=== PATIENT | male | born 1955 | race African-American/Black ===

== ENCOUNTER 2025-01-24 17:55 | Emergency (ER) | payer OTHER, SELFPAY ==
[2025-01-24 18:38] LABS: % Basophils 0.2 % (0-2); % Eosinophils 0.9 % (0-6); % Immature Granulocytes 0.2 % (0-0.5); % Lymphocytes 24.1 % (20.5-51.1); % Monocytes 12.8 % (1.7-9.3); % Neutrophils 61.8 % (42.2-75.2); Absolute Lymphocytes 1.1 10^3/uL (1.2-3.4); Absolute Monocytes 0.6 10^3/uL (0.1-0.6); Absolute Neutrophils 2.7 10^3/uL (1.4-6.5); Hematocrit 27.3 % (39.0-52.0); Hemoglobin 9.3 g/dL (13.0-18.0); Mean Corp Hgb Conc. 34.1 g/dL (33.0-37.0); Mean Corpuscular Hgb 34.2 pg (27.0-31.0); Mean Corpuscular Volume 100.4 fL (80.0-94.0); Mean Platelet Volume 8.8 fL (7.4-10.4); Nucleated Red Blood Cells % 0 % (-); Platelet Count 258 10^3/uL (130-400); Red Blood Cell Count 2.72 10^6/uL (4.70-6.10); Red Cell Dist. Width 14.9 % (11.5-14.5); White Blood Cell Count 4.4 10^3/uL (4.8-10.8)
[2025-01-24 18:47] LABS: INR 0.92; PT 12.9 Sec (11.4-14.6)
[2025-01-24 18:48] LABS: APTT 28.4 Sec (23.4-35.0)
[2025-01-24 18:58] LABS: ALT (SGPT) 29 U/L (0-50); AST (SGOT) 27 U/L (17-59); Alkaline Phosphatase 78 U/L (38-126); Blood Urea Nitrogen 14 mg/dl (9-20); Calcium 8.9 mg/dl (8.4-10.2); Carbon Dioxide 26 mmol/L (22-30); Chloride 108 mmol/L (98-107); Estimated Creatinine Clearance 91 ml/min; Glucose 99 mg/dl (70-99); Potassium 4.2 mmol/L (3.5-5.1); Sodium 139 mmol/L (135-145); Total Bilirubin 0.5 mg/dl (0.2-1.3); Total Protein 6.4 g/dl (6.3-8.2); eGFR > 60.00
--- NOTE | 2025-01-24 19:10 | ED.GENMED ---
History of Present Illness
General
Chief Complaint: Abnormal Lab Value
Source: patient
Time Seen by Provider: 01/24/25 18:26
History of Present Illness
History of Present Illness:
This patient is a 69-year-old male presents emergency department because he states he was told he had abnormal labs and needed to come to the ER. He says that about 10 days ago he awoke with 1/2-hour episode of nausea, vomiting, and passing black
stool. This was not associated with abdominal pain. Symptoms have fully resolved and he has not had any further episodes of black stool, bright red blood per rectum, or bleeding otherwise. About 3 days ago he developed episodes where he has
episodes where the light seem really bright and he seen blue and red in his visual field. He sometimes feels like it is hard to focus his vision as well. He saw an game operator and was told that his eye exam is normal. He spoke to his primary
care doctor, was referred for labs, and then was referred here. Patient states 'I feel fine'. He denies numbness, tingling, diplopia, focal weakness, vomiting, headache, imbalance/dizziness, abdominal pain, back pain, neck pain, or other
complaints.
Past History
Past History
ED Past Medical History: HTN, Hypercholesterolemia and Other ('eye migraines')
ED Past Surgical History: Orthopedic
Social History
Tobacco: Non-smoker
Alcohol: None
Drug: None
Living: alone
Phy Exam
Physical Exam
Physical Exam:
GENERAL: Alert , in no apparent distress
EYE: pupils equal and reactive to light, EOMI, no nystagmus, no objective photophobia, conjunctive a pink
NECK: Supple, no significant adenopathy.
ENT: o/p clr, mmm.
CARDIAC: Regular rate and rhythm .
LUNGS: Clear breath sounds bilaterally, no acute respiratory distress, no wheezes/rales/rhonchi
ABDOMEN: Soft, without focal tenderness, no r/g, no cvat
NEUROLOGICAL: Alert and oriented, no focal neuro deficits
SKIN: Warm and dry, skin intact.
MUSCULOSKELETAL: No edema, well perfused.
PSYCH: Normal and appropriate interaction.
Course
Orders/Labs/Results
Orders:
Orders
01/24/25 18:30
Type+Screen Urgent
Complete Blood Count/With Diff Urgent
Comprehensive Metabolic Panel Urgent
PT/INR [Prothrombin Time] Urgent
Is patient on Coumadin/Warfarin?: No
Comment: [email or web address]
PTT Urgent
01/24/25 19:27
ABO2 Urgent
BBK Wristband Number:
Associate notified that ABO2 has been ordered: [id number]
Date: 01/24/25
Time: 18:41
Ski Topper ID: [id number]
Urine Microscopic Reflex Cult Urgent
Urine Reflex Culture from UA [Urinalysis Reflex To Culture] Urgent
Date Specimen was Collected: 01/24/25
Time Specimen was Collected: 19:24
Urine Culture Urgent
IZZY Source: U
Specimen Description:
Date Specimen was Collected: 01/24/25
Time Specimen was Collected: 19:24
Abnormal Lab Results
01/24/25 01/24/25
18:30 19:27
WBC 4.4 L 10^3/uL
(4.8-10.8)
RBC 2.72 L 10^6/uL
(4.70-6.10)
Hgb 9.3 L g/dL
(13.0-18.0)
Hct 27.3 L %
(39.0-52.0)
MCV 100.4 H fL
(80.0-94.0)
MCH 34.2 H pg
(27.0-31.0)
RDW 14.9 H %
(11.5-14.5)
Absolute Lymphs (auto) 1.1 L 10^3/uL
(1.2-3.4)
Monocytes % 12.8 H %
(1.7-9.3)
Chloride 108 H mmol/L
(98-107)
Ur Occult Blood Reflex 2+ A
(Negative)
Urine WBC (Reflex) 11-15 A /HPF
(0-5)
Urine Bacteria (Reflex) Few A
(Negative)
Urine Albumin (Reflex) 1+ A
(Neg - Trace)
01/24/25 18:30
01/24/25 18:30
Vital Signs
Initial and Last Documented VS:
Initial Vital Signs
Temp Pulse Resp BP Pulse Ox
98.1 F 94 20 138/90 99
01/24/25 17:57 01/24/25 17:57 01/24/25 17:57 01/24/25 17:57 01/24/25 17:57
Last Documented Vital Signs
Temp Pulse Resp BP Pulse Ox
98.1 F 88 20 115/80 99
01/24/25 17:57 01/24/25 20:00 01/24/25 20:00 01/24/25 20:00 01/24/25 20:00
*Critical Care Note
Total Time (30-74mins, 75-104mins- exclusive of procedures): Not Applicable
Update Note
Update Note:
Patient presents to the Emergency Department with __reported abnormal lab
Number and Complexity of Problems Addressed at the Encounter
� Chronic conditions affecting care:
� Acute Exacerbation and/or Progression of Chronic Illness:
� Differential Diagnosis includes: But not limited to lower GI bleed, upper GI bleed, ocular migraine, dehydration, etc. etc. etc.
Amount and/or Complexity of Data to be Reviewed and Analyzed
� I performed an independent evaluation of and my interpretation is:
EKG:
CT:
Xrays:
Laboratory Studies: Anemia noted at 9.3, no BUN elevation. White blood cell count slightly lower than normal at 4.4. UA generally unremarkable.
Other:
� Review of other/old records reveals:
� Clinical information was obtained by an independent historian:
� Prescriptions/Medications Considered but not given:
� Further testing considered but not performed: Case discussed with Rachelle Lujan who is on-call for Dr. Mckeon's office as Dr. Mckeon is away. She states that patient last had a hemoglobin checked in April and it was 16. It was
checked yesterday and noted to be 8.9. I discussed with her patient's presentation. Of note, he has not had black stool for 10 days. He states he feels 'fine', and denies any symptoms at this time including abdominal pain, bleeding, etc. Patient
obviously needs very close follow-up however at this time does not meet criteria for inpatient admission to the hospital. He is on a baby aspirin which we will ask him to hold. He will have his hemoglobin rechecked in the next few days as well as
prompt reevaluation. I also left a message on the GI urgent follow-up line with his information including his phone number and date of so that he has very prompt GI follow-up.
Risk of Complications and/or Morbidity or Mortality of Patient Management
� Social determinants of health affecting care:
� Discussion with other providers (PCP, Hospitalists, Consultants, etc):
� Escalation of care including admission/observation vs risk of discharge considered:
ED Attending Note
-
Portions of this chart may have been created with voice recognition software.� Occasional wrong word or��sound alike� substitutions may have occurred due to the inherent limitations of voice recognition software.
Discharge Plan
Departure
Patient Disposition: Home (Routine Discharge)
Date of Disposition: 01/24/25
Time of Disposition: 20:17
Patient with high blood pressure during this ER visit?: Yes
Condition: Good
Discharge Problem:
Anemia
Instructions: BLOOD PRESSURE
Referrals:
Mekapati,Maria Luisa, MD [Active] - Next open appointment
Helen Mckeon DO [Family Provider] - Tomorrow
Activity Restrictions/Additional Instructions:
YOU ARE ANEMIC...THAT MEANS THAT YOUR RED BLOOD CELL COUNT IS LOW. THIS MAY BE FROM BLEEDING. YOUR VITAL SIGNS AND EXAM ARE STABLE AT THIS TIME. YOUR PRIMARY CARE DOCTOR WILL RE EVALUATE YOU THIS WEEK TO SEE WHAT FURTHER TESTING/MANAGEMENT YOU
MAY NEED. IN THE MEANTIME, PLEASE DISCONTINUE ASPIRIN (AND ANY OTHER POTENTIALLY BLOOD THINNING MEDICINES SUCH MOTRIN, IBUPROFEN, ETC) UNTIL YOUR PRIMARY CARE DOCTOR ADVISES OTHERWISE.
Interventions
Interventions:
*Risk Screen - Suicide Last Done: 01/24/25 18:14
*General Assessment Last Done: 01/24/25 17:57
*Neglect/Abuse Screening Last Done: 01/24/25 18:14
*ED- Fall Risk Assessment Last Done: 01/24/25 18:14
*ED COVID-19 Vaccine History Last Done: 01/24/25 18:14
Discharge Date and Time
Print Language: [id number]
[2025-01-24 19:47] LABS: Urine Albumin 1+ (Neg - Trace); Urine Bilirubin Negative (Negative); Urine Character Clear (Clear); Urine Color Yellow; Urine Glucose Negative (Negative); Urine Ketone Negative (Negative); Urine Leukocyte Negative (Negative); Urine Nitrite Negative (Negative); Urine Occult Blood 2+ (Negative); Urine Specific Gravity 1.015 (<1.030); Urine Urobilinogen Negative (Neg - 1+)
[2025-01-24 19:54] LABS: Urine Squamous Cell 0-2 /LPF (Few)
[2025-01-24 19:55] LABS: Urine Bacteria Few (Negative); Urine Red Blood Cell 0-2 /HPF (0-2)
== END 2025-01-24 20:37 | disposition home or self-care (01) ==
LOC: EMR 17:55
PROVIDERS: EMERGENCY PHYSICIAN Emergency Medicine; FAMILY PHYSICIAN Family Medicine
DX: D64.9 Anemia, unspecified (principal); I10 Essential (primary) hypertension; E78.00 Pure hypercholesterolemia, unspecified
CPT/HCPCS: 99283; 80053; 81003; 81015; 85025; 85610; 85730; 86850; 86900; 86901; 87086

== ENCOUNTER 2025-03-07 06:23 | Day surgery (SDC) | payer OTHER, SELFPAY | END 2025-03-07 13:31 | disposition home or self-care (01) | LOC: GI 06:23 | PROVIDERS: ATTENDING PHYSICIAN Internal Medicine Gastroenterology; FAMILY PHYSICIAN Family Medicine | DX: D50.9 Iron deficiency anemia, unspecified (principal); K64.8 Other hemorrhoids; K44.9 Diaphragmatic hernia without obstruction or gangrene; K25.9 Gastric ulcer, unspecified as acute or chronic, without hemorrhage or perforation; K29.80 Duodenitis without bleeding; K63.5 Polyp of colon; K62.1 Rectal polyp; K31.89 Other diseases of stomach and duodenum | CPT/HCPCS: 45380; 43239; 88305; 88342 ==